=== PATIENT | female | born 2005 ===

== ENCOUNTER 2024-09-12 | Outpatient (REF) | payer BC, SELFPAY ==
--- NOTE | 2024-09-12 | HM_ITS ---
Conclusion: 1. Patient was monitored for total period of 6 days and 19 hours 2. Baseline was normal sinus rhythm with average heart of 65 beats per minute 3. Frequent sinus bradycardia noted with 51% of time heart rate below 50 beats per minute 4. One episode of 3 beat salvos of nonsustained VT at 142 beats per minute 5. Patient reported multiple events of shortness of breath all of which correlated with sinus tachycardia without significant arrhythmias MTDD
== END 2024-09-12 00:01 | disposition home or self-care (01) ==
LOC: CF
PROVIDERS: PCP Emergency Medicine; Visit Provider Internal Medicine Cardiovascular Disease
DX: R00.0 Tachycardia, unspecified (principal)
CPT/HCPCS: 93242

== ENCOUNTER → 2024-09-12 10:00 | Outpatient (BNV) | payer BC, SELFPAY | PROVIDERS: PCP Emergency Medicine; Visit Provider Internal Medicine Cardiovascular Disease | DX: R00.1 Bradycardia, unspecified (principal) | CPT/HCPCS: 93244 ==

== ENCOUNTER 2024-12-18 06:35 | Outpatient (REF) | payer BC, SELFPAY ==
--- NOTE | ~2024-12-18 | US_ITS ---
CLINICAL HISTORY: H O 4CM RT OV CYST SEEN ON PREV CT US pelvis transabdominal and transvaginal with Doppler Comparison: None Findings: Transabdominal scanning performed for overall anatomy. Transvaginal scanning performed for additional detail. Anteverted uterus is 5.4 cm length. Normal myometrium. Endometrium is obscured by IUD. Right ovary 2.8 x 2.3 x 3.1 cm. Left ovary 3.6 x 2.6 x 3.3 cm. Normal color Doppler with arterial/venous spectral tracing of both ovaries. There are bilateral thin-walled possible incidental follicular cysts. No free fluid. IMPRESSION: 1. Unremarkable pelvic ultrasound with no evidence of ovarian torsion. This document has been electronically signed by: Andrea Chanel MD on 12/18/2024 19:30:10
--- OUTSIDE RECORDS SUMMARY | 2024-12-18 06:37 | XMS_ITS | Clinical Summary ---
Author Organization [facility] [place] [address] Care Team Providers Care Manager Resort Name Role Phone Unknown Primary Care Provider Unavailabl e Social History Tobacco Use Types Packs/Day Years Used Date Smoking Tobacco: Never Assessed Sex and Gender Information Value Date Recorded Sex Assigned at Not on file Gender Identity Not on file Sexual Orientation Not on file Plan of Treatment Health Maintenance Due Date Last Done Comments Chlamydia Screening 2018 HPV vaccine (1 - 3-dose series) 2018 HIV screen 2021 Hepatitis C Screening 2021 Hepatitis B vaccine (0-59 yrs) (1) 2022 Tetanus/Diphtheria/Pertussis Vaccines (1 - Tdap) 08/23 Covid-19 Vaccine (1 - 2023-25 season) 2024 Influenza (Flu) vaccine (1 o f 1 - Influenza standard series) 06/22/2024 PAP Smear 2024 Care Teams Manager Resort Relationship Specialty Start Date End Date Unknown None PCP - General 07/20/20
== END 2024-12-18 06:36 | disposition home or self-care (01) ==
LOC: HO.UMASIMG 06:35
PROVIDERS: Visit Provider Family Medicine
DX: N83.291 Other ovarian cyst, right side (principal)
CPT/HCPCS: 76830; 76856

== ENCOUNTER → 2024-12-18 14:00 | Outpatient (BNV) | payer BC, SELFPAY | PROVIDERS: Visit Provider Specialist | DX: N83.201 Unspecified ovarian cyst, right side (principal) | CPT/HCPCS: 76830; 76856 ==